=== PATIENT | male | born 1970 | race Caucasian/White ===

== ENCOUNTER 2018-01-13 01:23 | Emergency (ER) | payer BC, MEDICAID ==
[2018-01-13 01:29] VITALS: BP 140/92
[2018-01-13] MEDS ORDERED: Ondansetron 4 MG/2 ML SDV IVPUSH ONE (01:39)
[2018-01-13] MEDS ORDERED: Clindamycin Phosphate 900 MG in Sodium Chloride 0.9% 100 ML IV ONE (01:39)
[2018-01-13] MEDS ORDERED: HYDROmorphone 0.5 MG/0.5 ML SYRINGE IVPUSH ONE (01:39)
[2018-01-13] MEDS ORDERED: Sodium Chloride 0.9% 10 ML Syringe FLUSH PRN (01:40)
[2018-01-13] MEDS ORDERED: Ketorolac 30 MG/ML SDV IVPUSH SCH (01:45)
--- NOTE | 2018-01-13 01:45 | EDM.PDOC ---
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 States he has numerous dental caries and several teeth are broken off even with the gingiva margin. He states primarily due to lack of funds he has not received appropriate dental care for many years. His broken off first molar on the left lower gingiva margin and the canine tooth is broken off and on the left upper maxilla. He presents with left hemifacial swelling up to his eye involving his lip and lateral nose on the left side. States this developed over the last 12 hours or so. Has a constant throbbing pain in this area which is limited his ability to sleep as well. Onset: Sudden Onset Date: 01/12/18 (Noted last evening before bed was felt to be quite mild.) Duration: Hour(s): Location: Reports: Face (Left yovana-facial swelling inferior to his left eye but involving the lateral aspect of his nose and left facial cheek.) Quality: Reports: Ache, Throbbing Severity: Moderate Improves with: Reports: None Worsens with: Reports: None Context: Reports: Other (Dental caries.). Denies: Activity, Exercise, Lifting, Sick Contact, Trauma Associated Symptoms: Reports: Cough, cough w sputum ([place]ox sputum production). Denies: Diaphoresis, Fever/Chills, Headaches, Loss of Appetite, Malaise, Nausea/Vomiting, Rash, Seizure Treatments CHEMICAL DEPENDENCY NURSE: Reports: NSAIDS (Motrin when necessary) Left Face Pain Score (Numeric/FACES): 6 - Related Data Allergies Allergy/AdvReac Type Severity Reaction Status Date / Time No Known Allergies Allergy Verified 01/13/18 01:29 Home Meds: Home Meds Ciprofloxacin HCl [Cipro] 500 mg PO BID #20 tablet 01/13/18 [Rx] Clindamycin HCl [Cleocin HCl] 300 mg PO TID #21 capsule 01/13/18 [Rx] oxyCODONE HCl/Acetaminophen [Percocet 5-325 mg Tablet] 1 - 2 each PO Q4H PRN # 12 tablet 01/13/18 [Rx] Past Medical History - Past Health History Medical/Surgical History: Denies Medical/Surgical History Cardiovascular History: Reports: Other (See Below) Other Cardiovascular History: pericarditis - Past Surgical History Musculoskeletal Surgical History: Reports: Shoulder Surgery Social & Family History - Tobacco Use Smoking Status *Q: Current Every Day Smoker Years of Tobacco use: 20 Packs/Tins Daily: 0.5 Used Tobacco, but Quit: No - Recreational Drug Use Recreational Drug Use: No - Living Situation & Occupation Living situation: Reports: , with Spouse ED ROS ENT - Review of Systems Review Of Systems: See Below Constitutional: Reports: Malaise, Weakness, Fatigue, Decreased Appetite, Weight Loss, Other (98 on the left side she can't chew.). Denies: Fever, Chills HEENT: Reports: Dental Pain (Left upper and left lower gingival margins.), Ear Pain (Some pain referred to his left ear from his teeth.). Denies: Vision Change Respiratory: Reports: Shortness of Breath, Wheezing, Cough (At times paroxysmal cough.) Cardiovascular: Reports: Other (There is a history of pericarditis diagnosed on 2 occasions.) Endocrine: Reports: Fatigue GI/Abdominal: Reports: No Symptoms : Reports: No Symptoms Musculoskeletal: Reports: No Symptoms Skin: Reports: No Symptoms Neurological: Reports: No Symptoms Psychiatric: Reports: No Symptoms Hematologic/Lymphatic: Reports: No Symptoms Immunologic: Reports: No Symptoms ED EXAM, ENT - Physical Exam Exam: See Below Exam Limited By: No Limitations General Appearance: Alert, Moderate Distress (Left yovana-face is obviously grossly swollen it is warm to palpation compatible with infection.) Eye Exam: Bilateral Eye: Normal Inspection, PERRL Ears: Normal TMs Nose: Other (Left alae of nose is swollen as part of the infection involving his left yovana-face.) Mouth/Throat: Dental Pain (Pain primarily from the left lateral upper incisor tooth area it has a dental carry at its base adjacent to the gingiva margin.), Dental Tenderness, Other (The canine tooth and the outer left upper is broken off even with the gingiva margin. He has evidence of swelling of his gingiva both upper and lower gingiva margin is compatible with mild gingivitis. The left lower first molar is broken off even with the gingiva margin as well.). No : Dental Abcess Head: Atraumatic, Normocephalic Neck: Normal Inspection, Supple, Non-Tender, Full Range of Motion. No: Lymphadenopathy (L), Lymphadenopathy (R) Respiratory/Chest: No Respiratory Distress, Lungs Clear, No Accessory Muscle Use , Chest Non-Tender Cardiovascular: Normal Peripheral Pulses, Regular Rate, Rhythm, No Edema ( Resting tachycardia at 10 7/m.), No Gallop, No Murmur, No Rub, Tachycardia Course - Vital Signs Last Recorded V/S: Last Vital Signs Temp 36.6 C 01/13/18 01:27 Pulse 107 H 01/13/18 01:27 Resp 17 01/13/18 01:27 BP 140/92 H 01/13/18 01:27 Pulse Ox 97 01/13/18 01:27 - Orders/Labs/Meds Orders: Active Orders 24 hr Category Date Time Status Peripheral IV Care [RC] . DIRECTED Care 01/13/18 01:40 Active Ketorolac [Toradol] Med 01/13/18 01:45 Active 30 mg IVPUSH ONETIME Sodium Chloride 0.9% [Saline Flush] Med 01/13/18 01:40 Active 10 ml FLUSH ASDIRECTED PRN Peripheral IV Insertion Adult [OM.PC] Stat Oth 01/13/18 01:40 Ordered Medication Orders Ketorolac Tromethamine (Toradol) 30 mg IVPUSH ONETIME ADRIANE Last Admin: 01/13/18 01:47 Dose: 30 mg Sodium Chloride (Saline Flush) 10 ml FLUSH ASDIRECTED PRN PRN Reason: Keep Vein Open Last Admin: 01/13/18 01:44 Dose: 10 ml Meds: Medications Generic Name Dose Route Start Last Admin Trade Name Freq PRN Reason Stop Dose Admin Ketorolac Tromethamine 30 mg 01/13/18 01:45 01/13/18 01:47 Toradol IVPUSH 30 mg ONETIME ADRIANE Administration Sodium Chloride 10 ml 01/13/18 01:40 01/13/18 01:44 Saline Flush FLUSH 10 ml ASDIRECTED PRN Administration Keep Vein Open Discontinued Medications Generic Name Dose Route Start Last Admin Trade Name Freq PRN Reason Stop Dose Admin Hydromorphone HCl 0.5 mg 01/13/18 01:39 01/13/18 01:50 Dilaudid IVPUSH 01/13/18 01:40 0.5 mg ONETIME ONE Administration Clindamycin Phosphate 900 mg/ 106 mls @ 100 mls/hr 01/13/18 01:39 01/13/18 01 :51 Sodium Chloride IV 01/13/18 02:42 100 mls/hr ONETIME ONE Administration Ondansetron HCl 4 mg 01/13/18 01:39 01/13/18 01:48 Zofran IVPUSH 01/13/18 01:40 4 mg ONETIME ONE Administration - Radiology Interpretation Free Text/Narrative:: 48-year-old male presents to the ED with left hemifacial swelling secondary to dental infection. He has primary pain appears to be coming from the left lateral upper incisor tooth which is decayed at its base. The canine tooth is broken off even with the gingiva margin and either one could be the source of infective process. No Souther teeth and very bad condition that need to be removed completely by oral surgery. Infection is bad enough in his face towards intravenous antibiotics and therefore he will be given clindamycin 900 mg IV. He will be given Toradol 30 mg IV and Dilaudid 0.5 mg IV and Zofran 4 mg IV for pain nausea relief. He will be discharged tentatively on clindamycin 300 mg 3 times daily for 7 days and Cipro 500 mg twice a day for 10 days to clear up dental infection. Is going to need to see a dentist within the next few weeks otherwise the infection is likely to recur. - Re-Assessments/Exams Free Text/Narrative Re-Assessment/Exam: 01/13/18 03:02 has completed his IV clindamycin 900 mg IV and swelling and pain is improved. He will be discharged on clindamycin 300 mg 3 times a day for 7 days and Cipro 500 mg twice a day for 10 days to clear up infection completely. Departure - Departure Time of Disposition: 03:03 Disposition: Home, Self-Care 01 Condition: Fair Clinical Impression: Dental infection, Cellulitis of face - Discharge Information Prescriptions: Ciprofloxacin HCl [Cipro] 500 mg PO BID #20 tablet Clindamycin HCl [Cleocin HCl] 300 mg PO TID #21 capsule oxyCODONE HCl/Acetaminophen [Percocet 5-325 mg Tablet] 1 - 2 each PO Q4H PRN # 12 tablet PRN Reason: pain relief. Instructions: Dental Abscess, [id number], Cellulitis, Adult, [id number] Referrals: PCP,None [Primary Care Provider] - Forms: ED Department Discharge Additional Instructions: Evaluation the emergent tonight in regards to dental infection that has spread to the left side of your face which we call cellulitis. This means infection under the soft tissues between the skin and tissue of the face showed cheek. This appears to be secondary to infection from either broken off canine tooth or the left lateral incisor tooth. Only a dental x-ray could tell which tooth was the culprit. She'll doses of antibiotic to given intravenously in the ED clindamycin 900 mg. You are also given Zofran Toradol and small dose of Dilaudid for pain and inflammation relief. Treatment as an outpatient is to use antibiotic clindamycin 300 mg 3 times daily for another week and Cipro 500 mg twice daily for 10 days to clear up infection completely. Motrin 600 mg every 6 hours as needed for pain relief. Swelling of Lt face will not look much better within the next 24 hours but after 48 hours post antibiotic initiation it should be starting to improve.. Will still have to follow-up with a dentist within the next 10-12 days to have the teeth repaired so that this infection doesn't come right back. - My Orders Last 24 Hours: My Active Orders 01/13/18 01:40 Peripheral IV Care [RC] . DIRECTED Sodium Chloride 0.9% [Saline Flush] 10 ml FLUSH ASDIRECTED PRN Peripheral IV Insertion Adult [OM.PC] Stat 01/13/18 01:45 Ketorolac [Toradol] 30 mg IVPUSH ONETIME - Assessment/Plan Last 24 Hours: My Active Orders 01/13/18 01:40 Peripheral IV Care [RC] . DIRECTED Sodium Chloride 0.9% [Saline Flush] 10 ml FLUSH ASDIRECTED PRN Peripheral IV Insertion Adult [OM.PC] Stat 01/13/18 01:45 Ketorolac [Toradol] 30 mg IVPUSH ONETIME
== END 2018-01-13 03:00 | disposition home or self-care (01) ==
LOC: JD.ED 01:23
DX: K04.7 Periapical abscess without sinus (principal); L03.211 Cellulitis of face; K03.81 Cracked tooth; K02.9 Dental caries, unspecified; F17.210 Nicotine dependence, cigarettes, uncomplicated
CPT/HCPCS: 96365; 96375; 99283; J1170; J1885; J2405; J7030; J7050

== ENCOUNTER 2018-04-19 13:31 | Emergency (ER) | payer MEDICAID ==
--- NOTE | 2018-04-19 14:15 | EDM.PDOC ---
ED HPI GENERAL MEDICAL PROBLEM - General Chief Complaint: ENT Problem Stated Complaint: DENTAL COMPLAINT Time Seen by Provider: 04/19/18 13:46 Source of Information: Reports: Patient, RN Notes Reviewed - History of Present Illness INITIAL COMMENTS - FREE TEXT/NARRATIVE: [age] year old male with dental pain. Has several bad teeth, started having severe pain L upper molar 2 or 3 days ago, continues to worsen. Now has an area of swelling developing upper lateral gum. no fever or chills. Left Upper Tooth/Teeth Pain Score (Numeric/FACES): 8 - Related Data Allergies Allergy/AdvReac Type Severity Reaction Status Date / Time No Known Allergies Allergy Verified 04/19/18 13:44 Home Meds: Home Meds Acetaminophen/HYDROcodone [[place] 325-5 MG] 1 tab PO Q6H #20 tablet 04/19/18 [Rx] Past Medical History - Past Health History Medical/Surgical History: Denies Medical/Surgical History Cardiovascular History: Reports: Other (See Below) Other Cardiovascular History: pericarditis - Past Surgical History Musculoskeletal Surgical History: Reports: Shoulder Surgery Social & Family History - Tobacco Use Smoking Status *Q: Current Every Day Smoker Years of Tobacco use: 20 Packs/Tins Daily: 0.5 - Caffeine Use Caffeine Use: Reports: Coffee, Soda - Recreational Drug Use Recreational Drug Use: No - Living Situation & Occupation Living situation: Reports: , with Spouse ED ROS ENT - Review of Systems Review Of Systems: See Below Constitutional: Denies: Fever, Chills HEENT: Reports: Dental Pain Respiratory: Denies: Shortness of Breath Cardiovascular: Denies: Chest Pain GI/Abdominal: Denies: Nausea, Vomiting Skin: Reports: No Symptoms ED EXAM, ENT - Physical Exam Exam: See Below General Appearance: Alert, Mild Distress Eye Exam: Bilateral Eye: PERRL Mouth/Throat: Dental Pain (L upper molar decayed down to gum line, mild swelling of lateral gum, no drainage). No: Throat Swelling Head: Facial Tenderness (mild L face). No: Facial Swelling Respiratory/Chest: No Respiratory Distress Neurological: Alert, Oriented, No Motor/Sensory Deficits Skin: Warm, Dry, Normal Color Course - Vital Signs Last Recorded V/S: Last Vital Signs Temp 98.0 F 04/19/18 14:24 Pulse 74 04/19/18 14:24 Resp 16 04/19/18 14:24 BP 112/77 04/19/18 14:24 Pulse Ox 94 L 04/19/18 14:24 Departure - Departure Time of Disposition: 14:11 Disposition: Home, Self-Care 01 Condition: Fair Clinical Impression: Pain, dental, Dental infection - Discharge Information Prescriptions: Acetaminophen/HYDROcodone [[place] 325-5 MG] 1 tab PO Q6H #20 tablet Instructions: Dental Abscess, [id number] Referrals: PCP,None [Primary Care Provider] - Forms: ED Department Discharge Additional Instructions: amoxacillin antibiotic 1000 mg twice daily for 1 week or until gone, you may take advil or ibuprofen 600 mg 3 times daily for pain relief, tylenol in between doses for extra pain relief or hydrocodone if needed for severe pain, do not take hydrocodone and tylenol at the same time, do not drive within 6 hours of taking hydrocodone. See dentist as soon as possible.
[2018-04-19 14:25] VITALS: BP 112/77
== END 2018-04-19 14:31 | disposition home or self-care (01) ==
LOC: JD.ED 13:31
DX: K04.7 Periapical abscess without sinus (principal); F17.210 Nicotine dependence, cigarettes, uncomplicated
CPT/HCPCS: 99283

== ENCOUNTER 2018-07-19 20:44 | Emergency (ER) | payer MEDICAID ==
[2018-07-19 21:10] VITALS: BP 122/93
[2018-07-19] MEDS ORDERED: Penicillin V Potassium 500 MG Tab PO STA (23:08)
[2018-07-19] MEDS ORDERED: Naproxen 500 MG Tab PO ONE (23:09)
--- NOTE | 2018-07-19 23:14 | EDM.PDOC ---
ED HPI GENERAL MEDICAL PROBLEM - General Chief Complaint: ENT Problem Stated Complaint: tooth pain Time Seen by Provider: 07/19/18 22:52 Source of Information: Reports: Patient History Limitations: Reports: No Limitations - History of Present Illness INITIAL COMMENTS - FREE TEXT/NARRATIVE: The patient states that he developed upper left dental pain about a week ago. He states that he has had oral drainage today. No recent fever, but he has had chills. He states that he last saw a dentist about 6-8 months ago. Medical records indicate that the patient was seen in this ED on 01/13/2018 for left upper dental pain, and was prescribed at that time clindamycin, ciprofloxacin, and 12 tablets of Percocet. Medical records further indicate that the patient was again seen in this ED on 04/19/2018, again for upper left dental pain, and was prescribed 20 tablets of [place]. The patient does not have a PCP. left side of mouth Pain Score (Numeric/FACES): 8 - Related Data Allergies Allergy/AdvReac Type Severity Reaction Status Date / Time No Known Allergies Allergy Verified 04/19/18 13:44 Home Meds: Home Meds Naproxen 500 mg PO Q12H PRN #20 tablet 07/19/18 [Rx] Penicillin V Potassium 1 tab PO Q6HR #40 tab 07/19/18 [Rx] Past Medical History HEENT History: Reports: Other (See Below) Cardiovascular History: Reports: Other (See Below) (Pericarditis) - Past Surgical History HEENT Surgical History: Reports: Oral Surgery (wisdom teeth extraction) Musculoskeletal Surgical History: Reports: Shoulder Surgery (right, open, x 2) Social & Family History - Family History Family Medical History: Noncontributory - Tobacco Use Smoking Status *Q: Current Every Day Smoker Years of Tobacco use: 31 Packs/Tins Daily: 1 Packs/Tins Daily Comment: Down from 1.5 ppd - Caffeine Use Caffeine Use: Reports: Coffee - Alcohol Use Alcohol Use History: No - Recreational Drug Use Recreational Drug Use: Yes Drug Use in Last 12 Months: Yes Recreational Drug Type: Reports: Marijuana/Hashish - Living Situation & Occupation Living situation: Reports: Alone (in his truck) 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 ED EXAM, ENT - Physical Exam Exam: See Below Exam Limited By: No Limitations General Appearance: Alert, WD/WN, Mild Distress Eye Exam: Bilateral Eye: EOMI, Normal Inspection Ears: Normal External Exam, Normal Canal, Hearing Grossly Normal, Normal TMs Nose: Normal Inspection, Normal Mucousa, No Blood Mouth/Throat: Normal Lips, Other (Teeth #1, 2, 3, 4, 5 absent. Tooth #6 carious. Tooth #7 carious to the gingiva. Teeth #8, 9, 10 carious. Tooth #11 ( the tooth of concern) carious to the gingiva. Tooth #12 absent. Tooth #13 with filling. Tooth #14 absent. Teeth #16, 17 absent. Tooth #18 carious to the gingiva, with associated gingival swelling. Teeth #19, 20 absent. Tooth #29 with filling. Teeth #30, 31, 32 absent.) Head: Atraumatic, Facial Swelling (mild, on left). No: Facial Ecchymosis Neck: Normal Inspection, Supple, Non-Tender, Full Range of Motion. No: Lymphadenopathy (L), Lymphadenopathy (R) Course - Vital Signs Last Recorded V/S: Last Vital Signs Temp 37.8 C 07/19/18 21:07 Pulse 97 07/19/18 21:07 Resp 18 07/19/18 21:07 BP 122/93 H 07/19/18 21:07 Pulse Ox 96 07/19/18 21:07 - Orders/Labs/Meds Meds: Medications Discontinued Medications Generic Name Dose Route Start Last Admin Trade Name Freq PRN Reason Stop Dose Admin Naproxen 500 mg 07/19/18 23:09 07/19/18 23:17 Naprosyn PO 07/19/18 23:10 500 mg ONETIME ONE Administration Penicillin V Potassium 1,000 mg 07/19/18 23:08 07/19/18 23:16 Veetids PO 07/19/18 23:09 1,000 mg ONETIME STA Administration Departure - Departure Time of Disposition: 23:09 Disposition: Home, Self-Care 01 Condition: Fair Clinical Impression: Dental infection - Discharge Information *PRESCRIPTION DRUG MONITORING PROGRAM REVIEWED*: Not Applicable *COPY OF PRESCRIPTION DRUG MONITORING REPORT IN PATIENT DAGMAR: Not Applicable Prescriptions: Penicillin V Potassium 1 tab PO Q6HR #40 tab Naproxen 500 mg PO Q12H PRN #20 tablet PRN Reason: Pain Instructions: Dental Abscess, [id number] Referrals: PCP,None [Primary Care Provider] - Forms: ED Department Discharge Additional Instructions: You were seen in the emergency room for upper left dental pain. On examination, you have severe decay of more than one tooth, with a likely dental infection. You have been started on the antibiotic penicillin and the pain medicine naproxen, and an additional pill of penicillin was given to you, that you should take around 6:00 this morning. Prescriptions for penicillin and naproxen have been sent to the [facility], [address] [place] [address] [address], located just south and across the [address] from [facility]. Take one tablet of penicillin every 6 hours, starting around noon. Finish the entire prescription unless told otherwise by a dentist. Take one tablet of the pain medicine naproxen every 12 hours, with food, starting around noon. A list of local dentists has been provided to you. Follow-up with a dentist at the next available appointment. If any other problems, please do not hesitate to return to the ER.
== END 2018-07-19 23:20 | disposition home or self-care (01) ==
LOC: JD.ED 20:44
DX: K04.7 Periapical abscess without sinus (principal); K02.9 Dental caries, unspecified; F17.210 Nicotine dependence, cigarettes, uncomplicated
CPT/HCPCS: 99283; A9270